=== PATIENT | male | born 1990 | race Caucasian/White ===

== ENCOUNTER 2022-06-10 14:00 | Emergency (ER) | payer OTHER, SELFPAY ==
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
[2022-06-10 14:35] VITALS: BP 147/63; PULSE 70; RESP 16; TEMP 37.4; O2SAT 100
== END 2022-06-10 15:14 | disposition home or self-care (01) ==
PROVIDERS: Emergency Provider Nurse Practitioner Family; PCP Internal Medicine
DX: S83.411A Sprain of medial collateral ligament of right knee, initial encounter (principal); V18.4XXA Pedal cycle driver injured in noncollision transport accident in traffic accident, initial encounter; F90.9 Attention-deficit hyperactivity disorder, unspecified type
CPT/HCPCS: 73564; 99213; G0463